=== PATIENT | female | born 1960 | race Caucasian/White ===

== ENCOUNTER 2016-11-27 12:05 | Emergency (ER) | payer MEDICARE ==
[2016-11-27] MEDS ORDERED: MORPHINE 4 MG/ML SYR ONE (16:00)
[2016-11-27] MEDS ORDERED: DILAUDID 1 MG/ML AMP ONE (17:34)
== END 2016-11-27 17:50 | disposition home or self-care (01) ==
LOC: ER 12:05
CPT/HCPCS: 96374 ×2; 96375 ×2; 96376 ×2; 99283; J1170; J2270